=== PATIENT | male | born 1995 | race Two or more races ===

== ENCOUNTER 2024-10-11 17:03 | Emergency (ER) | payer BC, MEDICAID, SELFPAY ==
[2024-10-11 17:25] VITALS: BP 121/78; PULSE 95; RESP 18; TEMP 37.2; O2SAT 96; BMI 23.1
--- NOTE | 2024-10-11 17:32 | XR_ITS ---
Examination: Testicular sonography complete TECHNIQUE: Jones scale sonographic images testes, including arterial and venous outflow, Doppler spectrum analysis color flow analysis Date and time on October 11, 2024 1810 hours INDICATIONS: Bilateral testicular pain beginning 2 days ago FINDINGS: Right testis is 4.6 cm epididymis 10 mm Appendix testis 4 x 4 mm Epididymal cyst 2 mm Arterial flow to the testis. No testicular Mass. Mild hydrocele Left testis 4.3 cm epididymis 2.1 cm Appendix testis 4 mm Arterial flow to the testicle. No testicular Mass. Mild hydrocele IMPRESSION: No testicular torsion or testicular mass Suspicious for left epididymitis
--- NOTE | 2024-10-11 17:35 | PD.EDRME ---
Rapid Medical Screening Exam RME Arrival date/time: 10/11/24 17:03 29-year-old male with history of varicoceles who reports having surgery in [place] in May for the condition presents with concerns for testicular pain Chief Complaint: Urogenital-Male Time Seen by Provider: 10/11/24 17:06 Vital signs: Vital Signs Temperature 99 F 10/11/24 17:25 Pulse Rate 95 10/11/24 17:25 Respiratory Rate 18 10/11/24 17:25 Blood Pressure 121/78 10/11/24 17:25 Pulse Oximetry (%) 96 10/11/24 17:25 Oxygen Delivery Method Room Air 10/11/24 17:25
[2024-10-11 19:26] LABS: Collection Type, Urine Clean Catch
[2024-10-11 19:43] LABS: Bilirubin,Urine Negative (Negative); Blood,Urine Negative (Negative); Clarity,Urine Clear (Clear/Hazy); Color,Urine Yellow (Lt Yel-Yel); Culture Indicated,Urine Not Indicated; Glucose, Urine Negative (Negative); Hyaline Casts,Urine < 1 /hpf (0-1); Ketones,Urine Negative (Negative); Leukocyte Esterase,Urine Negative (Negative); Nitrite,Urine Negative (Negative); PH,Urine 6.5 (5.0-7.0); Protein,Urine Negative (Neg - Trace); RBC,Urine 2 /hpf (0-3); Specific Gravity,Urine 1.025 (1.001-1.035); Squamous Epithelial Cell,Urine < 1 /hpf (0-5); Urobilinogen,Urine Negative mg/dL (0.0-1.0); WBC,Urine < 1 /hpf (0-5)
--- NOTE | 2024-10-11 20:41 | PD.EDMALE ---
ED Male Genitalurinary RME/HPI General Chief complaint: Urogenital-Male Stated complaint: Right testicle swollen X 2 days Time Seen by Provider: 10/11/24 17:06 Arrival date/time: 10/11/24 17:03 RME / HPI RME / HPI Narrative: 10/11/24 17:03 29-year-old male with history of varicoceles who reports having surgery in [place] in May for the condition presents with concerns for testicular pain ------ See MDM for HPI documentation. Related Data Home Medications ?Medication ?Instructions ?Recorded ?Confirmed ibuprofen 600 mg tablet 600 mg PO Q6HR PRN PAIN #0 tabs 11/26/16 Previous Rx's ?Medication ?Instructions ?Recorded albuterol sulfate 90 mcg/actuation 1 - 2 puff inhalation Q6HR PRN 11/26/16 aerosol inhaler (ProAir HFA) WHEEZING #1 inh albuterol sulfate 90 mcg/actuation 2 puff inhalation QID #18 grams 04/27/20 aerosol inhaler cetirizine 10 mg tablet (Zyrtec) 10 mg PO QDAY PRN allergy symptoms 04/27/20 #30 tabs sodium chloride 0.65 % nasal spray 2 spray intranasal QID PRN nasal 04/27/20 aerosol (Saline Nasal) congestion #60 mL hydrocodone 5 mg-acetaminophen 325 1 tab PO BID PRN pain #10 tabs 08/12/23 mg tablet tamsulosin 0.4 mg capsule (Flomax) 0.4 mg PO QDAY #14 caps 08/12/23 acetaminophen 300 mg-codeine 30 mg 2 tab PO Q8H PRN pain #10 tabs 10/11/24 tablet ciprofloxacin HCl 500 mg tablet 500 mg PO BID #20 tabs 10/11/24 (Cipro) ibuprofen 600 mg tablet 600 mg PO TID PRN fever or pain 10/11/24 #30 tabs Allergies Allergy/AdvReac Type Severity Reaction Status Date / Time No Known Allergies Allergy Verified 10/11/24 17:08 Review of Systems Review of Systems Systems Reviewed: All systems reviewed, normal except as documented Past Medical History Past Medical History CARDIAC: Negative Congestive Heart Failure RESPIRATORY: Negative Chronic Obstructive Pulmonary Disease (COPD) GENITOURINARY: Negative Renal Disease ENDOCRINE: Negative Diabetes Mellitus Type 1 or Diabetes Mellitus Type 2 Social History SMOKING STATUS: Never smoker ED Exam Narrative Physical exam: See [facility] for physical exam documentation. Course Quality Measures none Orders Category Date Time Status US testicular Stat Exams 10/11/24 17:32 Completed Chlamydia/GC/TV - PCR Stat Lab 10/11/24 19:15 Received UA, C/S IF [Urinalysis, C/S if Indicated] Stat Lab 10/11/24 19:15 Completed Vital Signs Vital signs: Vital Signs Temperature 99 F 10/11/24 17:25 Pulse Rate 95 10/11/24 17:25 Respiratory Rate 18 10/11/24 17:25 Blood Pressure 121/78 10/11/24 17:25 Pulse Oximetry (%) 96 10/11/24 17:25 Oxygen Delivery Method Room Air 10/11/24 17:25 Urogenital - Male [facility] Narrative [facility] Narrative:: This section includes all my notes and documentations, including HPI, PE, and ED course. Blue Hitchcock MD HPI: 29yo male here with right testicular tenderness and fullness for the last couple weeks. No dysuria or fever. No other complaints reported. ROS: All negative except as documented in HPI. Physical Exam: General: Alert and oriented. No acute distress when remaining still. Eyes: Conjunctivae and lids clear. ENT: No nasal congestion. Neck: Supple. Lungs: No respiratory distress. Good air movement. No rhonchi, wheezing, rales. Abdomen: Soft and nontender. Normal bowel sounds. No distension. No rebound or guarding. Back: No CVA tenderness. : Normal external anatomy with circumcised penis. No scrotal edema/erythema/calor. Skin: Warm and dry. Neuro: Alert and oriented X 3. I reviewed all diagnostic test results. My review of the testicular report is suspicious for left epididymitis. Urine tests are unremarkable. At this point, diagnoses include epididymitis. Recommend outpatient management. Based on my best medical judgment, made decision no further evaluation or treatment indicated at this time. Patient understands and agrees to the discharge instructions customized and printed, see below. Discharge Instructions from Dr. Hitchcock: --After evaluation, you have epididymitis. This is inflammation/infection of a coiled tube called the epididymis that is located behind your testicle, inside the scrotum. The epididymis collects and stores sperm made by the testicles. --Epididymitis is often caused by bacteria in the urinary tract. --Take Cipro as prescribed. --Apply ice or heat if helpful. --Wear athletic supporter as needed. --Ibuprofen 600 mg every 6-8 hours today and tomorrow to decrease inflammation then as needed. Tylenol with codeine for severe pain. --See a private doctor on 10/13/2024 for recheck. Ask to help until you are completely better. Ask for help with referral to see Urologist. --Seek immediate medical care with worsening pain, fever > 100.4, or with any concerns. Blue Hitchcock MD Patient data External records reviewed:: [facility] previous records (Per chart review, patient was seen here on 08/12/23 for kidney calculus.) Clinical information provided by:: patient Social determinants that could affect healthcare access:: none Patient has the following chronic illnesses:: none How is presenting disease/condition affected by chronic disease/condition?: no chronic disease Evaluation data The following diagnostics were reviewed and interpreted by me:: lab results and radiology exam(s) Lab and/or radiology exams considered but not ordered:: none Interpretation Summary: I reviewed all diagnostic test results. My review of the testicular report is suspicious for left epididymitis. Urine tests are unremarkable. Medications / Prescriptions Medications or Prescriptions considered but not ordered:: none Medication administrations:: none Consultations Consultation(s) initiated? (list below): No Diagnosis Urogenital Male Differential Diagnosis: urinary tract infection, urethritis, epididymitis and inguinal hernia Most likely diagnosis given after review of the tests above:: Epididymitis Admission Indicated Admission indicated?: not indicated Explain why admission is indicated or not indicated:: With no condition needing emergent intervention, there was no indication for admission. Admission Request Was there a request for admission?: No Disposition Plan Disposition Plan: Discharge Discharge Attestation Discharge Attestation: The patient and all family members were given an opportunity to ask questions and understood the discharge instructions. Discharge instructions specifically effects, indications for sooner follow up or return to the emergency department, and the expected course of current diagnosis. Patient condition: Stable Discharge Plan Plan Patient Disposition: HOME (Self Care) Prescriptions/Referrals Prescriptions/Med Rec: New acetaminophen-codeine 300-30 mg tablet 2 tab PO Q8H MDD 6 PRN (Reason: pain) Qty: 10 0RF ciprofloxacin HCl [Cipro] 500 mg tablet 500 mg PO BID Qty: 20 0RF ibuprofen 600 mg tablet 600 mg PO TID PRN (Reason: fever or pain) Qty: 30 0RF No Action ibuprofen 600 MG tablet 600 mg PO Q6HR PRN (Reason: PAIN) Qty: 0 albuterol sulfate [ProAir HFA] 8.5 GM HFA aerosol inhaler 1 - 2 puff Inhalation Q6HR PRN (Reason: WHEEZING) Qty: 1 0RF Rx Instructions: Please give and use spacer albuterol sulfate 90 mcg/actuation HFA aerosol inhaler 2 puff inhalation QID Qty: 18 0RF sodium chloride [Saline Nasal] 0.65 % aerosol,spray 2 spray intranasal QID PRN (Reason: nasal congestion) Qty: 60 0RF cetirizine [Zyrtec] 10 mg tablet 10 mg PO QDAY PRN (Reason: allergy symptoms) Qty: 30 0RF tamsulosin [Flomax] 0.4 mg capsule 0.4 mg PO QDAY Qty: 14 0RF hydrocodone-acetaminophen 5-325 mg tablet 1 tab PO BID MDD 10mg PRN (Reason: pain) Qty: 10 0RF Referrals: Enzo Allen MD [Primary Care Provider] - In 1 week Problem List Clinical Impression: Epididymitis Patient/Caregiver Discharge Instructions Discharge Activity: activity as tolerated Education Materials: ED Epididymitis Additional Instructions: Discharge Instructions from Dr. Hitchcock: --After evaluation, you have epididymitis. This is inflammation/infection of a coiled tube called the epididymis that is located behind your testicle, inside the scrotum. The epididymis collects and stores sperm made by the testicles. --Epididymitis is often caused by bacteria in the urinary tract. --Take Cipro as prescribed.?? --Apply ice or heat if helpful. --Wear athletic supporter as needed. --Ibuprofen 600 mg every 6-8 hours today and tomorrow to decrease inflammation then as needed. Tylenol with codeine for severe pain. --See a private doctor on 10/13/2024 for recheck. Ask to help until you are completely better.? Ask for help with referral to see Urologist.?? --Seek immediate medical care with worsening pain, fever > 100.4, or with any concerns. Print Language: [place] Stand Alone Forms: [employer] Award Info., Patient Portal Info Letter
[2024-10-14 18:16] LABS: Chlamydia trachomatis PCR Negative (Not Detect); Neisseria Gonorrhoeae DNA PCR Negative (Not Detect); Trichomonas Negative (Negative)
== END 2024-10-11 21:03 | disposition home or self-care (01) ==
PROVIDERS: Nurse Practitioner Primary Care; Emergency Provider Emergency Medicine; PCP Family Medicine
DX: N45.1 Epididymitis (principal)
CPT/HCPCS: 76870; 81001; 87491; 87591; 87661; 99283